=== PATIENT | female | born 1930 | race Hispanic/Latino ===

== ENCOUNTER 2017-04-15 10:38 | Observation (INO) | payer MEDICARE ==
[~2017-04-15] VITALS: Ht 152.4 cm; Wt 50.5 kg
[~2017-04-15 10:38] MED LIST: AMLO2.5T PO; ASPI-1022 PO; ATOR40TA71 PO; B6 PO; ERGO500014 PO; LEVO100T12 PO; METF500T6 PO; SOLI5 PO; TRAM50TA4 PO; VALS160T28 PO
[2017-04-15 11:51] LABS: BASOPHILS % (AUTO) 0.4 % (0.0-5.0); HEMATOCRIT 29.8 % (36-48); LYMPHOCYTES % (AUTO) 11.3 % (21.0-51.0); MEAN CORPUSCULAR HEMOGLOBIN 32.3 pg (27.0-33.0); MEAN CORPUSCULAR HGB CONC 34.2 g/dL (32.0-36.0); MEAN CORPUSCULAR VOLUME 94.3 fL (79-99); MONOCYTES % (AUTO) 4.9 % (3.0-13.0); NEUTROPHILS % (AUTO) 82.4 % (40.0-77.0); PLATELET COUNT (AUTO) 259 K/uL (130-400); RED BLOOD CELL COUNT(AUTO) 3.16 MIL/uL (4.00-5.50); RED CELL DISTRIBUTION WIDTH 15.4 % (11.0-15.5); WHITE BLOOD COUNT (AUTO) 11.6 K/uL (4.8-10.8)
[2017-04-15] MEDS ORDERED: HYDRALAZINE HCL 20 MG/ML VIAL ONE (11:51)
[2017-04-15] MEDS ORDERED: ACETAMINOPHEN-CODEINE ELIXIR 5 ML UDCUP ONE (11:52)
[2017-04-15 12:03] LABS: POTASSIUM 4.2 mmol/L (3.5-5.1)
[2017-04-15 12:12] LABS: ALBUMIN 3.7 g/dL (3.5-5.0); BILIRUBIN,TOTAL 0.4 mg/dL (0.2-1.0); TOTAL PROTEIN, SERUM 7.4 g/dL (6.0-8.3)
[2017-04-15 12:14] LABS: B-TYPE NATRIURETIC PEPTIDE 162 pg/mL (0-100)
[2017-04-15] MEDS ORDERED: MAG HYDROX/AL HYDROX/SIMETH ES 30 ML SUSP UDCUP PO PRN (12:30)
[2017-04-15] MEDS ORDERED: LACTULOSE 20 GM/30 ML UDCUP PO PRN (12:30)
[2017-04-15] MEDS ORDERED: GUAIFENESIN-DM 200/20 MG 10 ML PO PRN (12:30)
[2017-04-15] MEDS ORDERED: ONDANSETRON HCL 4 MG/2 ML VIAL IV PRN (12:30)
[2017-04-15] MEDS ORDERED: ACETAMINOPHEN 325 MG TAB PO PRN ×2 (12:30)
[2017-04-15 14:18] VITALS: BP 149/64
[2017-04-15] MEDS ORDERED: COLL30OI TP (14:59)
[2017-04-15 17:22] LABS: APPEARANCE,URINE Clear (CLEAR); BILIRUBIN,URINE Negative (NEGATIVE); COLOR,URINE Yellow (YELLOW); GLUCOSE, URINE (UA) Negative (NEGATIVE); KETONES,URINE 15 mg/dL (NEGATIVE); LEUKOCYTE ESTERASE ,URINE Small (NEGATIVE); NITRATE,URINE Negative (NEGATIVE); OCCULT BLOOD,URINE Negative (NEGATIVE); PH,URINE 5.5 (5.0-8.0); PROTEIN,URINE 300 (NEGATIVE); UROBILINOGEN,URINE 0.2 mg/dL (0.2-1.0)
[2017-04-15 17:29] LABS: BACTERIA,URINE Few /HPF (None Seen); RBC,URINE None Seen /HPF (0-1); RENAL EPITHELIAL CELLS,URINE Rare /LPF (None Seen); TRANSITIONAL EPI CELLS,URINE Rare /LPF (None Seen); WBC,URINE 51-100 /HPF (0-1)
[2017-04-15 19:53] VITALS: BP 143/83
[2017-04-15] MEDS ORDERED: FAMOTIDINE/PF 20 MG/2 ML VIAL IV SCH (21:00)
[2017-04-15] MEDS ORDERED: VANCOMYCIN 1GM+NS 250ML 250 ML IV SCH (22:30)
[2017-04-15] MEDS ORDERED: MORPHINE SULFATE 2 MG/ML 1ML SYG IVP PRN (22:45)
[2017-04-15] MEDS ORDERED: MORPHINE SULFATE 4 MG/1ML SYG ONE (23:05)
[2017-04-16] MEDS: LEVOFLOXACIN 500 MG/D5W 100 ML 100 ML IV SCH ×2 (00:15→22:55)
[2017-04-16] MEDS ORDERED: VANCOMYCIN PROTOCOL PER PHARMACY IV SCH (00:15)
[2017-04-16 00:48] VITALS: BP 154/69
[2017-04-16 04:10] VITALS: BP 160/70
[2017-04-16] MEDS ORDERED: MORPHINE SULFATE 4 MG/1ML SYG ONE (04:59)
[2017-04-16 06:08] LABS: HEMATOCRIT 27.4 % (36-48); MEAN CORPUSCULAR HEMOGLOBIN 31.3 pg (27.0-33.0); MEAN CORPUSCULAR HGB CONC 33.2 g/dL (32.0-36.0); MEAN CORPUSCULAR VOLUME 94.4 fL (79-99); PLATELET COUNT (AUTO) 205 K/uL (130-400); RED BLOOD CELL COUNT(AUTO) 2.91 MIL/uL (4.00-5.50); RED CELL DISTRIBUTION WIDTH 15.4 % (11.0-15.5); WHITE BLOOD COUNT (AUTO) 6.2 K/uL (4.8-10.8)
[2017-04-16 06:17] LABS: INR 1.02 (0.85-1.15); PROTHROMBIN TIME 10.7 SEC (9.6-11.6)
[2017-04-16 06:18] LABS: CREATININE 1.2 mg/dL (0.5-1.5); POTASSIUM 4.2 mmol/L (3.5-5.1)
[2017-04-16] MEDS ORDERED: COMPOUND IV REFRIGERATED 1 EACH IVSOLN MISC PRN (06:30)
[2017-04-16 07:00] VITALS: BP 172/63
[2017-04-16] MEDS ORDERED: SODIUM CHLORIDE 0.9% 1000ML 1,000 ML IV SCH (09:23)
[2017-04-16 16:18] VITALS: BP 161/63
[2017-04-16] MEDS: FAMOTIDINE/PF 20 MG/2 ML VIAL IV SCH (17:53)
[2017-04-16] MEDS: METFORMIN HCL 500 MG TABLET PO SCH (17:53)
[2017-04-16 20:00] VITALS: BP 158/73
[2017-04-16] MEDS ORDERED: VANCOMYCIN 750MG + NS 250 ML IV SCH ×2 (21:00)
[2017-04-16] MEDS ORDERED: AMLODIPINE BESYLATE 2.5 MG TAB PO SCH (21:00)
[2017-04-16 23:56] VITALS: BP 164/68
[2017-04-17 03:42] VITALS: BP 189/89
[2017-04-17 06:55] LABS: HEMATOCRIT 26.5 % (36-48); MEAN CORPUSCULAR HEMOGLOBIN 33.2 pg (27.0-33.0); MEAN CORPUSCULAR HGB CONC 35.3 g/dL (32.0-36.0); MEAN CORPUSCULAR VOLUME 94.1 fL (79-99); PLATELET COUNT (AUTO) 206 K/uL (130-400); RED BLOOD CELL COUNT(AUTO) 2.82 MIL/uL (4.00-5.50); RED CELL DISTRIBUTION WIDTH 15.3 % (11.0-15.5); WHITE BLOOD COUNT (AUTO) 5.7 K/uL (4.8-10.8)
[2017-04-17 07:02] LABS: CREATININE 1.1 mg/dL (0.5-1.5)
[2017-04-17] MEDS ORDERED: LEVOTHYROXINE 100 MCG TABLET PO SCH (07:30)
[2017-04-17] MEDS ORDERED: METFORMIN HCL 500 MG TABLET PO SCH (07:30)
[2017-04-17 08:00] VITALS: BP 198/82
[2017-04-17] MEDS ORDERED: ATORVASTATIN CALCIUM 40 MG TABLET PO SCH (09:00)
[2017-04-17] MEDS ORDERED: LOSARTAN 100 MG TABLET PO SCH (09:00)
[2017-04-17] MEDS ORDERED: SANTYL TP SCH (09:00)
[2017-04-17] MEDS ORDERED: **HM** VESICARE 5MG PO SCH (09:00)
[2017-04-17] MEDS: TRAMADOL HCL 50 MG TABLET PO PRN ×2 (09:17→16:53)
[2017-04-17] MEDS: FAMOTIDINE/PF 20 MG/2 ML VIAL IV SCH (09:17)
[2017-04-17] MEDS ORDERED: CIPR-245 PO (10:05)
[2017-04-17 11:00] VITALS: BP 164/74
[2017-04-17 16:00] VITALS: BP 183/79
[2017-04-17] MEDS ORDERED: MORPHINE SULFATE 4 MG/1ML SYG IVP PRN (16:00)
[2017-04-17] MEDS: METFORMIN HCL 500 MG TABLET PO SCH (16:53)
== END 2017-04-17 20:00 ==
LOC: EDH 10:38 → EDHIP 12:17 → 3DH 13:52
PROVIDERS: ADMIT Family Medicine; ATTEND Family Medicine
DX: S32.010A Wedge compression fracture of first lumbar vertebra, initial encounter for closed fracture (principal); S22.080A Wedge compression fracture of T11-T12 vertebra, initial encounter for closed fracture; N39.0 Urinary tract infection, site not specified; L03.032 Cellulitis of left toe; I10 Essential (primary) hypertension; E78.5 Hyperlipidemia, unspecified; E03.9 Hypothyroidism, unspecified; D64.9 Anemia, unspecified; W01.0XXA Fall on same level from slipping, tripping and stumbling without subsequent striking against object, initial encounter; Y93.89 Activity, other specified; Y92.009 Unspecified place in unspecified non-institutional (private) residence as the place of occurrence of the external cause; Y99.8 Other external cause status; Z82.49 Family history of ischemic heart disease and other diseases of the circulatory system; Z83.3 Family history of diabetes mellitus
CPT/HCPCS: 36415 ×3; 70450; 71045; 72072; 72100; 72125; 72146; 72148; 80048 ×2; 80053; 81001; 82948 ×4; 83880; 84484; 85025; 85027 ×2; 85610; 93005 ×2; 96361 ×2; 96365; 96366; 96367; 96375 ×2; 96376 ×2; 97161; 99291; G0378 ×56; G8978; G8979; G8980; G8981; G8982; G8983; J0360; J1956 ×2; J2270 ×2; J3370; J3490 ×3

== ENCOUNTER 2017-06-14 15:58 | Inpatient (IN) | payer MEDICARE ==
[~2017-06-14] VITALS: Ht 154.9 cm; Wt 49.7 kg
[~2017-06-14 15:58] MED LIST changes: -ASPI-1022 PO; -B6 PO; +CIPR-245 PO; +COLL30OI TP; -VALS160T28 PO; +VALS160T29 PO
[2017-06-14 16:52] VITALS: BP 128/43
[2017-06-14 17:10] LABS: BASOPHILS % (AUTO) 0.4 % (0.0-5.0); HEMATOCRIT 26.8 % (36-48); LYMPHOCYTES % (AUTO) 30.3 % (21.0-51.0); MEAN CORPUSCULAR HEMOGLOBIN 30.5 pg (27.0-33.0); MEAN CORPUSCULAR HGB CONC 33.9 g/dL (32.0-36.0); MONOCYTES % (AUTO) 8.3 % (3.0-13.0); PLATELET COUNT (AUTO) 282 K/uL (130-400); RED BLOOD CELL COUNT(AUTO) 2.98 MIL/uL (4.00-5.50); RED CELL DISTRIBUTION WIDTH 18.2 % (11.0-15.5); WHITE BLOOD COUNT (AUTO) 6.9 K/uL (4.8-10.8)
[2017-06-14 17:23] LABS: INR 0.9 (0.85-1.15); PROTHROMBIN TIME 9.5 SEC (9.6-11.6)
[2017-06-14 17:24] LABS: CREATININE 1.7 mg/dL (0.5-1.5); POTASSIUM 4.8 mmol/L (3.5-5.1)
[2017-06-14 17:31] LABS: BILIRUBIN,TOTAL 0.2 mg/dL (0.2-1.0); TOTAL PROTEIN, SERUM 6.8 g/dL (6.0-8.3)
[2017-06-14] MEDS ORDERED: TRAMADOL HCL 50 MG TABLET ONE (17:34)
[2017-06-14] MEDS: TRAMADOL HCL 50 MG TABLET PO PRN (17:53)
[2017-06-14] MEDS ORDERED: FAMO-136 PO (18:05)
[2017-06-14] MEDS ORDERED: AEC81 PO (18:05)
[2017-06-14] MEDS ORDERED: CLOP75TA14 PO (18:05)
[2017-06-14] MEDS ORDERED: HONE15GE TP (18:05)
[2017-06-14] MEDS ORDERED: INSLAN SQ (18:05)
[2017-06-14 18:55] LABS: PLATELET MORPHOLOGY PLT CLUMPS PRESENT
[2017-06-14 19:00] VITALS: BP 135/76
[2017-06-14 20:01] LABS: APPEARANCE,URINE CLOUDY (CLEAR); BILIRUBIN,URINE NEGATIVE (NEGATIVE); COLOR,URINE YELLOW (YELLOW); GLUCOSE, URINE (UA) NEGATIVE (NEGATIVE); KETONES,URINE NEGATIVE (NEGATIVE); LEUKOCYTE ESTERASE ,URINE SMALL (NEGATIVE); NITRATE,URINE NEGATIVE (NEGATIVE); OCCULT BLOOD,URINE MODERATE (NEGATIVE); PROTEIN,URINE >=300 (NEGATIVE); UROBILINOGEN,URINE 0.2 mg/dL (0.2-1.0)
[2017-06-14 20:20] LABS: BACTERIA,URINE Few /HPF (None Seen)
[2017-06-14 20:21] LABS: SQUAMOUS EPITHELIAL CELL,UR Rare /HPF (0-2); WBC,URINE 51-100 /HPF (0-1)
[2017-06-14] MEDS: MORPHINE SULFATE 4 MG/1ML SYG IVP PRN (21:37)
[2017-06-14 23:00] VITALS: BP 139/55
[2017-06-15] MEDS ORDERED: BISACODYL 10 MG SUPP.RECT RC ONE (01:00)
[2017-06-15] MEDS ORDERED: POTASSIUM CHLORIDE 20 MEQ ERTAB PO PRN (01:00)
[2017-06-15] MEDS ORDERED: POTASSIUM CHLORIDE 20MEQ/100ML 100 ML IV PRN (01:00)
[2017-06-15] MEDS ORDERED: HYDRALAZINE HCL 20 MG/ML VIAL IV PRN (01:00)
[2017-06-15] MEDS ORDERED: DEXTROSE 50%-WATER 50 ML DISP.SYRIN IV PRN (01:00)
[2017-06-15] MEDS ORDERED: LIDOCAINE HCL-MPF 1% 2ML VIAL IVP PRN (01:00)
[2017-06-15] MEDS ORDERED: POTASSIUM CHLORIDE 10% ELIXIR 20 MEQ/15 ML UDCUP PO PRN (01:00)
[2017-06-15] MEDS ORDERED: DIPHENHYDRAMINE HCL 25 MG CAPSULE PO PRN (01:00)
[2017-06-15] MEDS ORDERED: GLUCAGON 1MG KIT 1 MG ML IM PRN (01:00)
[2017-06-15] MEDS: LEVOFLOXACIN 500 MG/D5W 100 ML 100 ML IV SCH (01:31)
[2017-06-15 03:00] VITALS: BP 117/59
[2017-06-15 04:42] LABS: HEMATOCRIT 21.2 % (36-48); MEAN CORPUSCULAR HEMOGLOBIN 32.1 pg (27.0-33.0); MEAN CORPUSCULAR HGB CONC 35.3 g/dL (32.0-36.0); MEAN CORPUSCULAR VOLUME 90.9 fL (79-99); PLATELET COUNT (AUTO) 218 K/uL (130-400); RED BLOOD CELL COUNT(AUTO) 2.33 MIL/uL (4.00-5.50); WHITE BLOOD COUNT (AUTO) 6.1 K/uL (4.8-10.8)
[2017-06-15 04:56] LABS: CREATININE 1.7 mg/dL (0.5-1.5); POTASSIUM 5.1 mmol/L (3.5-5.1)
[2017-06-15] MEDS: TRAMADOL HCL 50 MG TABLET PO PRN ×2 (05:04→18:03)
[2017-06-15 05:50] LABS: BAND NEUTROPHILS % (MANUAL) 2 % (0-2); BASOPHILS % (MANUAL) 1 % (0-2); EOSINOPHILS % (MANUAL) 4 % (1-6); LYMPHOCYTES % (MANUAL) 25 % (22-44); MAN.DIFF COMMENT-IMPRESSION MANUAL DIFFERENTIAL; MONOCYTES % (MANUAL) 7 % (2-9); PLATELET MORPHOLOGY COMMENT ADEQUATE; REACTIVE LYMPHOCYTES 5 % (0-0); SEGMENTED NEUTROPHILS % 56 % (40-70)
[2017-06-15 05:59] LABS: ERYTHROCYTE SEDIMENTATION RATE 67 MM/HR (0-15)
[2017-06-15] MEDS: INSULIN HUMULIN R 100 UNIT/ML 3ML SQ SCH ×4 (06:18→20:58)
[2017-06-15 07:52] VITALS: BP 137/60
[2017-06-15] MEDS: FAMOTIDINE 20MG TAB 20 MG TAB PO SCH (08:08)
[2017-06-15] MEDS: MORPHINE SULFATE 4 MG/1ML SYG IVP PRN ×3 (08:08→14:23)
[2017-06-15 11:37] VITALS: BP 142/61
[2017-06-15 13:03] LABS: HEMATOCRIT 23.2 % (36-48)
[2017-06-15 16:18] VITALS: BP 132/60
[2017-06-15 19:00] VITALS: BP 187/84
[2017-06-15] MEDS: ATORVASTATIN CALCIUM 40 MG TABLET PO SCH (20:54)
[2017-06-15] MEDS: AMLODIPINE BESYLATE 2.5 MG TAB PO SCH (20:54)
[2017-06-15] MEDS: INSULIN GLARGINE 100 UNITS/ML 10 ML VIAL SQ SCH (20:57)
[2017-06-15] MEDS ORDERED: INSULIN GLARGINE 100 UNITS/ML 10 ML VIAL SQ SCH (21:00)
[2017-06-15 23:00] VITALS: BP 156/65
[2017-06-16 03:00] VITALS: BP 142/49
[2017-06-16] MEDS: MORPHINE SULFATE 4 MG/1ML SYG IVP PRN ×2 (03:31→22:40)
[2017-06-16 04:48] LABS: CREATININE 1.4 mg/dL (0.5-1.5); POTASSIUM 4.7 mmol/L (3.5-5.1)
[2017-06-16 04:49] LABS: HEMATOCRIT 22.7 % (36-48); MEAN CORPUSCULAR HEMOGLOBIN 30.1 pg (27.0-33.0); MEAN CORPUSCULAR HGB CONC 33.6 g/dL (32.0-36.0); MEAN CORPUSCULAR VOLUME 89.5 fL (79-99); PLATELET COUNT (AUTO) 234 K/uL (130-400); RED BLOOD CELL COUNT(AUTO) 2.54 MIL/uL (4.00-5.50); RED CELL DISTRIBUTION WIDTH 17.8 % (11.0-15.5)
[2017-06-16] MEDS: INSULIN HUMULIN R 100 UNIT/ML 3ML SQ SCH ×4 (05:31→20:14)
[2017-06-16] MEDS: LEVOTHYROXINE 100 MCG TABLET PO SCH (06:35)
[2017-06-16] MEDS: TRAMADOL HCL 50 MG TABLET PO PRN ×2 (06:47→13:32)
[2017-06-16 08:18] VITALS: BP_SYST 127; BP_SYST 56; BP_DIAS 56
[2017-06-16] MEDS: ***HM***(Solifenacin Succinate (Vesicare) 5 MG) PO SCH (08:44)
[2017-06-16] MEDS: HONEY 1 APPL/ML TUBE TP SCH (08:45)
[2017-06-16] MEDS: LOSARTAN 100 MG TABLET PO SCH (08:51)
[2017-06-16] MEDS: CLOPIDOGREL BISULFATE 75 MG TAB PO SCH (08:51)
[2017-06-16] MEDS: ASPIRIN 81 MG EC TAB PO SCH (08:51)
[2017-06-16] MEDS: FAMOTIDINE 20MG TAB 20 MG TAB PO SCH (08:51)
[2017-06-16 12:31] VITALS: BP 154/64
[2017-06-16 17:56] VITALS: BP 179/83
[2017-06-16 20:00] VITALS: BP 143/67
[2017-06-16] MEDS: ATORVASTATIN CALCIUM 40 MG TABLET PO SCH (20:05)
[2017-06-16] MEDS: AMLODIPINE BESYLATE 2.5 MG TAB PO SCH (20:06)
[2017-06-16] MEDS: INSULIN GLARGINE 100 UNITS/ML 10 ML VIAL SQ SCH (20:13)
[2017-06-16 23:52] VITALS: BP 160/77
[2017-06-17] MEDS: LEVOFLOXACIN 500 MG/D5W 100 ML 100 ML IV SCH (00:58)
[2017-06-17 04:00] VITALS: BP 134/66
[2017-06-17] MEDS: TRAMADOL HCL 50 MG TABLET PO PRN ×3 (04:09→21:31)
[2017-06-17 06:05] LABS: HEMATOCRIT 23.1 % (36-48); MEAN CORPUSCULAR HEMOGLOBIN 31.6 pg (27.0-33.0); MEAN CORPUSCULAR HGB CONC 35.6 g/dL (32.0-36.0); MEAN CORPUSCULAR VOLUME 88.9 fL (79-99); PLATELET COUNT (AUTO) 235 K/uL (130-400); RED CELL DISTRIBUTION WIDTH 18.6 % (11.0-15.5); WHITE BLOOD COUNT (AUTO) 7.5 K/uL (4.8-10.8)
[2017-06-17 06:11] LABS: CREATININE 1.4 mg/dL (0.5-1.5); POTASSIUM 4.9 mmol/L (3.5-5.1)
[2017-06-17] MEDS: LEVOTHYROXINE 100 MCG TABLET PO SCH (06:25)
[2017-06-17] MEDS: INSULIN HUMULIN R 100 UNIT/ML 3ML SQ SCH ×4 (06:33→21:00)
[2017-06-17 08:00] VITALS: BP 154/117
[2017-06-17] MEDS: FAMOTIDINE 20MG TAB 20 MG TAB PO SCH (08:39)
[2017-06-17] MEDS: LOSARTAN 100 MG TABLET PO SCH (08:40)
[2017-06-17] MEDS: CLOPIDOGREL BISULFATE 75 MG TAB PO SCH (08:41)
[2017-06-17] MEDS: ASPIRIN 81 MG EC TAB PO SCH (08:41)
[2017-06-17] MEDS: ***HM***(Solifenacin Succinate (Vesicare) 5 MG) PO SCH (08:46)
[2017-06-17] MEDS: HONEY 1 APPL/ML TUBE TP SCH (10:18)
[2017-06-17] MEDS: MORPHINE SULFATE 4 MG/1ML SYG IVP PRN ×2 (10:18→17:59)
[2017-06-17 16:00] VITALS: BP 158/71
[2017-06-17 20:00] VITALS: BP 149/64
[2017-06-17] MEDS: ATORVASTATIN CALCIUM 40 MG TABLET PO SCH (21:24)
[2017-06-17] MEDS: AMLODIPINE BESYLATE 2.5 MG TAB PO SCH (21:24)
[2017-06-17] MEDS: INSULIN GLARGINE 100 UNITS/ML 10 ML VIAL SQ SCH (21:44)
[2017-06-17 23:56] VITALS: BP 162/64
[2017-06-18 04:00] VITALS: BP 149/62
[2017-06-18] MEDS: MORPHINE SULFATE 4 MG/1ML SYG IVP PRN ×2 (04:01→21:26)
[2017-06-18] MEDS: INSULIN HUMULIN R 100 UNIT/ML 3ML SQ SCH ×4 (06:03→21:00)
[2017-06-18 06:21] LABS: HEMATOCRIT 22.9 % (36-48); MEAN CORPUSCULAR HEMOGLOBIN 30.7 pg (27.0-33.0); MEAN CORPUSCULAR HGB CONC 34.4 g/dL (32.0-36.0); MEAN CORPUSCULAR VOLUME 89.1 fL (79-99); PLATELET COUNT (AUTO) 253 K/uL (130-400); RED BLOOD CELL COUNT(AUTO) 2.57 MIL/uL (4.00-5.50); WHITE BLOOD COUNT (AUTO) 6.9 K/uL (4.8-10.8)
[2017-06-18 06:32] LABS: CREATININE 1.4 mg/dL (0.5-1.5); POTASSIUM 4.5 mmol/L (3.5-5.1)
[2017-06-18] MEDS: LEVOTHYROXINE 100 MCG TABLET PO SCH (06:33)
[2017-06-18 08:28] VITALS: BP 135/68
[2017-06-18] MEDS: ***HM***(Solifenacin Succinate (Vesicare) 5 MG) PO SCH (09:00)
[2017-06-18] MEDS: LOSARTAN 100 MG TABLET PO SCH (09:41)
[2017-06-18] MEDS: FAMOTIDINE 20MG TAB 20 MG TAB PO SCH (09:41)
[2017-06-18] MEDS: ASPIRIN 81 MG EC TAB PO SCH (09:41)
[2017-06-18] MEDS: CLOPIDOGREL BISULFATE 75 MG TAB PO SCH (09:41)
[2017-06-18] MEDS: TRAMADOL HCL 50 MG TABLET PO PRN (09:42)
[2017-06-18] MEDS: HONEY 1 APPL/ML TUBE TP SCH (09:44)
[2017-06-18 12:36] VITALS: BP 155/73
[2017-06-18 16:00] VITALS: BP 141/64
[2017-06-18 20:00] VITALS: BP 146/64
[2017-06-18] MEDS: ATORVASTATIN CALCIUM 40 MG TABLET PO SCH (21:26)
[2017-06-18] MEDS: LACTULOSE 20 GM/30 ML UDCUP PO PRN (21:26)
[2017-06-18] MEDS: AMLODIPINE BESYLATE 2.5 MG TAB PO SCH (21:26)
[2017-06-18] MEDS: INSULIN GLARGINE 100 UNITS/ML 10 ML VIAL SQ SCH (21:34)
[2017-06-19] VITALS: BP 159/79
[2017-06-19] MEDS: LEVOFLOXACIN 500 MG/D5W 100 ML 100 ML IV SCH (01:00)
[2017-06-19 04:00] VITALS: BP 132/60
[2017-06-19] MEDS: MORPHINE SULFATE 4 MG/1ML SYG IVP PRN (05:00)
[2017-06-19 06:03] LABS: HEMATOCRIT 23.8 % (36-48); MEAN CORPUSCULAR HEMOGLOBIN 31.2 pg (27.0-33.0); MEAN CORPUSCULAR HGB CONC 35.1 g/dL (32.0-36.0); MEAN CORPUSCULAR VOLUME 88.8 fL (79-99); PLATELET COUNT (AUTO) 268 K/uL (130-400); RED BLOOD CELL COUNT(AUTO) 2.68 MIL/uL (4.00-5.50); RED CELL DISTRIBUTION WIDTH 17.9 % (11.0-15.5)
[2017-06-19 06:18] LABS: CREATININE 1.5 mg/dL (0.5-1.5); POTASSIUM 4.4 mmol/L (3.5-5.1)
[2017-06-19] MEDS: LEVOTHYROXINE 100 MCG TABLET PO SCH (06:19)
[2017-06-19] MEDS: INSULIN HUMULIN R 100 UNIT/ML 3ML SQ SCH ×4 (06:21→21:00)
[2017-06-19] MEDS: ***HM***(Solifenacin Succinate (Vesicare) 5 MG) PO SCH (09:00)
[2017-06-19 10:21] VITALS: BP 137/56
[2017-06-19] MEDS: LOSARTAN 100 MG TABLET PO SCH (10:49)
[2017-06-19] MEDS: FAMOTIDINE 20MG TAB 20 MG TAB PO SCH (10:49)
[2017-06-19] MEDS: TRAMADOL HCL 50 MG TABLET PO PRN ×2 (10:50→18:05)
[2017-06-19] MEDS: ASPIRIN 81 MG EC TAB PO SCH (10:51)
[2017-06-19] MEDS: CLOPIDOGREL BISULFATE 75 MG TAB PO SCH (10:51)
[2017-06-19] MEDS: HONEY 1 APPL/ML TUBE TP SCH (10:52)
[2017-06-19 12:45] VITALS: BP 139/70
[2017-06-19 18:03] VITALS: BP_SYST 152; BP_SYST 177; BP_DIAS 60; BP_DIAS 84
[2017-06-19 20:00] VITALS: BP 154/64
[2017-06-19] MEDS: INSULIN GLARGINE 100 UNITS/ML 10 ML VIAL SQ SCH (21:00)
[2017-06-19] MEDS: ATORVASTATIN CALCIUM 40 MG TABLET PO SCH (21:00)
[2017-06-19] MEDS: AMLODIPINE BESYLATE 2.5 MG TAB PO SCH (21:00)
[2017-06-20] VITALS: BP 150/67
[2017-06-20] MEDS: MORPHINE SULFATE 4 MG/1ML SYG IVP PRN (00:48)
[2017-06-20 04:00] VITALS: BP 103/50
[2017-06-20 04:31] LABS: HEMATOCRIT 23.1 % (36-48); MEAN CORPUSCULAR HEMOGLOBIN 30.1 pg (27.0-33.0); MEAN CORPUSCULAR HGB CONC 33.6 g/dL (32.0-36.0); MEAN CORPUSCULAR VOLUME 89.6 fL (79-99); PLATELET COUNT (AUTO) 259 K/uL (130-400); RED BLOOD CELL COUNT(AUTO) 2.58 MIL/uL (4.00-5.50); RED CELL DISTRIBUTION WIDTH 17.8 % (11.0-15.5); WHITE BLOOD COUNT (AUTO) 6.3 K/uL (4.8-10.8)
[2017-06-20] MEDS: INSULIN HUMULIN R 100 UNIT/ML 3ML SQ SCH ×2 (06:02→11:30)
[2017-06-20] MEDS: LEVOTHYROXINE 100 MCG TABLET PO SCH (06:31)
[2017-06-20] MEDS: LACTULOSE 20 GM/30 ML UDCUP PO PRN (06:54)
[2017-06-20] MEDS: TRAMADOL HCL 50 MG TABLET PO PRN ×2 (06:55→13:53)
[2017-06-20] MEDS: ***HM***(Solifenacin Succinate (Vesicare) 5 MG) PO SCH (09:00)
[2017-06-20] MEDS: CLOPIDOGREL BISULFATE 75 MG TAB PO SCH (13:51)
[2017-06-20] MEDS: FAMOTIDINE 20MG TAB 20 MG TAB PO SCH (13:52)
[2017-06-20] MEDS: LOSARTAN 100 MG TABLET PO SCH (13:52)
[2017-06-20] MEDS: ASPIRIN 81 MG EC TAB PO SCH (13:52)
[2017-06-20] MEDS: HONEY 1 APPL/ML TUBE TP SCH (13:54)
[2017-06-20 14:26] VITALS: BP 119/68
== END 2017-06-20 18:40 | disposition home or self-care (01) | DRG 638 ==
LOC: EDH 15:58 → EDHIP 15:59 → 3BH 16:34
PROVIDERS: ADMIT Internal Medicine; ATTEND Internal Medicine
DX: E11.621 Type 2 diabetes mellitus with foot ulcer (principal); L03.116 Cellulitis of left lower limb; L97.529 Non-pressure chronic ulcer of other part of left foot with unspecified severity; L97.329 Non-pressure chronic ulcer of left ankle with unspecified severity; E11.21 Type 2 diabetes mellitus with diabetic nephropathy; E11.40 Type 2 diabetes mellitus with diabetic neuropathy, unspecified; N39.0 Urinary tract infection, site not specified; E11.51 Type 2 diabetes mellitus with diabetic peripheral angiopathy without gangrene; D64.9 Anemia, unspecified; E03.9 Hypothyroidism, unspecified; E78.5 Hyperlipidemia, unspecified; E11.22 Type 2 diabetes mellitus with diabetic chronic kidney disease; N18.3 Chronic kidney disease, stage 3 (moderate); G89.4 Chronic pain syndrome; I12.9 Hypertensive chronic kidney disease with stage 1 through stage 4 chronic kidney disease, or unspecified chronic kidney disease; Z87.440 Personal history of urinary (tract) infections; Z90.710 Acquired absence of both cervix and uterus; Z88.2 Allergy status to sulfonamides; Z88.0 Allergy status to penicillin
CPT/HCPCS: 36415; 71045; 73600; 80048; 80053; 81001; 82948; 85014; 85018; 85025; 85027; 85610; 85651; 86850; 86900; 86901; 87040; 87088; 93306; 97039; J1956; J2270